=== PATIENT | female | born 1970 | race Hispanic/Latino ===

== ENCOUNTER 2017-06-04 15:26 | Emergency (ER) | payer BC, OTHER ==
[2017-06-04] MEDS ORDERED: methylPREDNISolone Sod Succ/PF 125 MG/2 ML VIAL ONE (16:06)
[2017-06-04] MEDS ORDERED: Water For Inject, Bacteriostat 30 ML ONE (16:06)
[2017-06-04] MEDS ORDERED: diphenhydrAMINE 50 MG/ML VIAL ONE (16:06)
[2017-06-04] MEDS ORDERED: Famotidine 40 MG/4 ML VIAL SLOW IVP SCH (16:45)
== END 2017-06-04 17:54 | disposition home or self-care (01) ==
LOC: ERS 15:26
DX: L20.9 Atopic dermatitis, unspecified (principal); E66.9 Obesity, unspecified; I10 Essential (primary) hypertension
CPT/HCPCS: 96374; 96375; J1200; J2930